=== PATIENT | female | born 1980 | race African-American/Black ===

== ENCOUNTER 2019-03-17 06:28 | Observation (INO) | payer BC ==
--- NOTE | 2019-03-17 09:51 | ER Document Report ---
ED General - General Chief Complaint: Abdominal Pain Stated Complaint: LOWER ABDOMINAL PAIN Time Seen by Provider: 03/17/19 08:00 Primary Care Provider: JOCELIN ARRINGTON MD [Primary Care Provider] - Follow up as needed Mode of Arrival: Ambulatory Information source: Patient Notes: This 38-year-old female presents emergency department this morning with complaints of left lower abdominal pain that started suddenly. She reports she woke up had a bowel movement which was normal and started having left lower abdominal pain. Reports she has never had this pain before. Reports she was unable to stand straight because of the pain. Reports she is walking bent over. Hurts to stand straight. Denies other symptoms such as fever vomiting diarrhea. Reports some nausea but declines antinausea medicine. Denies pain with void. Denies vaginal discharge. Denies chronic abdominal issues such as IBS Crohn's or diverticulitis. Reports she was feeling fine when she went to bed last night. TRAVEL OUTSIDE OF THE [place] IN LAST 30 DAYS: No - HPI Onset: This morning Onset/Duration: Sudden Quality of pain: Sharp Severity: Severe Pain Level: 5 Associated symptoms: Nausea Exacerbated by: Supine, Movement Relieved by: Other - bent over Similar symptoms previously: No Recently seen / treated by doctor: No - Related Data Allergies/Adverse Reactions: No Known Allergies Allergy (Verified 03/17/19 06:31) Past Medical History - General Information source: Patient Last Menstrual Period: march 07 - Social History Smoking Status: Never Smoker Chew tobacco use (# tins/day): No Frequency of alcohol use: Occasional Drug Abuse: None Occupation: base in an office Lives with: Alone Family History: None Patient has suicidal ideation: No Patient has homicidal ideation: No Pulmonary Medical History: Reports: Hx Asthma Renal/ Medical History: Reports: Other - fibroids. Denies: Hx Peritoneal Dialysis Surgical Hx: Negative Review of Systems - Review of Systems Notes: Review HPI for review of systems., All other systems negative Physical Exam - Vital signs Vitals: Temp Pulse Resp BP Pulse Ox 98.9 F 87 20 139/86 H 98 03/17/19 06:33 03/17/19 06:33 03/17/19 06:33 03/17/19 06:33 03/17/19 06:33 - Notes Notes: PHYSICAL EXAMINATION: GENERAL: Well-appearing and in no acute distress HEAD: Atraumatic, normocephalic. EYES: Pupils equal round and reactive to light, extraocular movements intact, sclera anicteric, conjunctiva are normal. ENT: nares patent, oropharynx clear without exudates. Moist mucous membranes. NECK: Normal range of motion, supple without lymphadenopathy LUNGS: CTAB and equal. No wheezes rales or rhonchi. HEART: Regular rate and rhythm without murmurs ABDOMEN: Soft,lower abdominal tenderness. No guarding, no rebound increased pain with supine BACK: Denies pain EXTREMITIES: Normal range of motion, no pitting edema. No cyanosis. NEUROLOGICAL: Cranial nerves grossly intact. Normal sensory/motor exams. PSYCH: Normal mood, normal affect. SKIN: Warm, Dry, normal turgor, no rashes or lesions noted Course - Re-evaluation Re-evalutation: 03/17/19 09:52 This 38-year-old female presents with sudden onset lower abdominal pain that started this morning after she had a bowel movement. Reports she felt fine last night when she went to bed eating drinking as normal. Denies fever vomiting diarrhea reports some nausea this morning. Will evaluate with labs, CT of the abdomen. 03/17/19 11:56 3 cm bladder mass noted on CT scan. Consult Dr. Haynes who advises transvaginal ultrasound for further evaluation of the cyst. Discussed plan of care with patient she is still hurting after 5 mg of morphine. We will treat her pain prior to ultrasound. Agrees with plan at this time. 03/17/19 14:02 Dr. Cruz radiologist on the phone. Reports she noted a left ovarian mass approximately 12 to 13 cm with possible left ovarian torsion. CUFF STITCHER on-call Dr. Seth page through the hospital. She is in the emergency department now in another patient's room and will come see me when she is done. 14:15 Dr. Seth in the emergency department discussed patient with her discussed lab results and radiology results. Patient is being prepared to go the OR. I discussed this with patient. She verbalized understanding and agrees with caleb florence.. Dr Arrington contacted. He reports he is okay with dr seth taking patient to the OR and appreciates her help. 03/17/19 09:45 03/17/19 10:58 MCV 88 fl (80-97) 03/17/19 09:45 MCH 29.4 pg (27.0-33.4) 03/17/19 09:45 MCHC 33.5 g/dL (32.0-36.0) 03/17/19 09:45 RDW 13.2 % (11.5-14.0) 03/17/19 09:45 Seg Neutrophils % 74.2 % (42-78) 03/17/19 09:45 Lymphocytes % 17.3 % (13-45) 03/17/19 09:45 Monocytes % 7.4 % (3-13) 03/17/19 09:45 Eosinophils % 0.3 % (0-6) 03/17/19 09:45 Basophils % 0.8 % (0-2) 03/17/19 09:45 Absolute Neutrophils 4.7 10^3/uL (1.7-8.2) 03/17/19 09:45 Absolute Lymphocytes 1.1 10^3/uL (0.5-4.7) 03/17/19 09:45 Absolute Monocytes 0.5 10^3/uL (0.1-1.4) 03/17/19 09:45 Absolute Eosinophils 0.0 10^3/uL (0.0-0.6) 03/17/19 09:45 Absolute Basophils 0.0 10^3/uL (0.0-0.2) 03/17/19 09:45 Chloride 100 mmol/L (98-107) 03/17/19 10:58 Carbon Dioxide 26 mmol/L (22-30) 03/17/19 10:58 Anion Gap 9 (5-19) 03/17/19 10:58 Est GFR ( Amer) > 60 (>60) 03/17/19 10:58 Est GFR (Non-Af Amer) > 60 (>60) 03/17/19 10:58 Glucose 117 mg/dL (75-110) H 03/17/19 10:58 Calcium 9.5 mg/dL (8.4-10.2) 03/17/19 10:58 Total Bilirubin 0.5 mg/dL (0.2-1.3) 03/17/19 10:58 AST 26 U/L (14-36) 03/17/19 10:58 ALT 19 U/L (9-52) 03/17/19 10:58 Alkaline Phosphatase 59 U/L (38-126) 03/17/19 10:58 Total Protein 7.4 g/dL (6.3-8.2) 03/17/19 10:58 Albumin 4.0 g/dL (3.5-5.0) 03/17/19 10:58 Serum HCG, Qual NEGATIVE (NEGATIVE) 03/17/19 09:45 Urine Color YELLOW 03/17/19 09:45 Urine Appearance SLIGHTLY-CLOUDY 03/17/19 09:45 Urine pH 5.0 (5.0-9.0) 03/17/19 09:45 Ur Specific [place] 1.029 03/17/19 09:45 Urine Protein NEGATIVE mg/dL (NEGATIVE) 03/17/19 09:45 Urine Glucose (UA) NEGATIVE mg/dL (NEGATIVE) 03/17/19 09:45 Urine Ketones NEGATIVE mg/dL (NEGATIVE) 03/17/19 09:45 Urine Blood NEGATIVE (NEGATIVE) 03/17/19 09:45 Urine Nitrite NEGATIVE (NEGATIVE) 03/17/19 09:45 Ur Leukocyte Esterase NEGATIVE (NEGATIVE) 03/17/19 09:45 Urine WBC (Auto) 1 /HPF 03/17/19 09:45 Urine RBC (Auto) 1 /HPF 03/17/19 09:45 Abdomen/Pelvis CT 03/17/19 08:52 IMPRESSION: 1. 3 cm mass in the urinary bladder. 2. 3 cm right adnexal cyst, almost certainly benign. No additional imaging is required for this. Abdomen/Pelvis CT 03/17/19 08:52 IMPRESSION: 1. 3 cm mass in the urinary bladder. 2. 3 cm right adnexal cyst, almost certainly benign. No additional imaging is required for this. Abdomen/Pelvis CT 03/17/19 08:52 IMPRESSION: 1. 3 cm mass in the urinary bladder. 2. 3 cm right adnexal cyst, almost certainly benign. No additional imaging is required for this. Transvaginal US 03/17/19 11:48 IMPRESSION: 13 x 11 x 9 cm cystic mass with mural nodule in the pelvis just slightly to the left of midline. This most likely represents a primary ovarian cystic mass with intermittent left ovarian torsion. Findings discussed with the emergency room practitioner. 03/17/19 14:28 - Vital Signs Vital signs: Temp Pulse Resp BP Pulse Ox 98.9 F 87 20 139/86 H 98 03/17/19 06:33 03/17/19 06:33 03/17/19 06:33 03/17/19 06:33 03/17/19 06:33 - Laboratory Result Diagrams: 03/17/19 09:45 03/17/19 10:58 Laboratory results interpreted by me: 03/17/19 10:58 Sodium 135.4 L Glucose 117 H - Diagnostic Test Radiology reviewed: Image reviewed, Reports reviewed - Consults lupe Reason for consultation: 03/17/19 14:15 torsion, l ovarian mass Consulted provider: will come to ER Discharge - Discharge Clinical Impression: Abdominal pain, torsion, Bladder mass Condition: Stable Disposition: ADMITTED INPATIENT Admitting Provider: [facility] Unit Admitted: Surgical Floor Referrals: JOCELIN ARRINGTON MD [Primary Care Provider] - Follow up as needed
[2019-03-17 09:56] LABS: ABSOLUTE LYMPHOCYTES (AUTO) 1.1 10^3/uL (0.5-4.7); ABSOLUTE MONOCYTES (AUTO) 0.5 10^3/uL (0.1-1.4); ABSOLUTE NEUT (AUTO) 4.7 10^3/uL (1.7-8.2); BASOPHILS % (AUTO) 0.8 % (0-2); EOSINOPHILS % (AUTO) 0.3 % (0-6); HEMATOCRIT 40.2 % (36.0-47.0); HEMOGLOBIN 13.5 g/dL (12.0-15.5); LYMPHOCYTES % (AUTO) 17.3 % (13-45); MEAN CORPUSCULAR HEMOGLOBIN 29.4 pg (27.0-33.4); MEAN CORPUSCULAR HGB CONC 33.5 g/dL (32.0-36.0); MEAN CORPUSCULAR VOLUME 88 fl (80-97); MONOCYTES % (AUTO) 7.4 % (3-13); PLATELET COUNT 345 10^3/uL (150-450); RED BLOOD COUNT 4.58 10^6/uL (3.72-5.28); RED CELL DISTRIBUTION WIDTH 13.2 % (11.5-14.0); SEGMENTED NEUTROPHILS % (AUTO) 74.2 % (42-78); TOTAL CELLS COUNTED % (AUTO) 100 %; WHITE BLOOD COUNT 6.3 10^3/uL (4.0-10.5)
[2019-03-17] MEDS ORDERED: ONDANSETRON HCL INJ/PF 4 MG/2 ML SDV IV ONE ×2 (10:29→11:23)
[2019-03-17] MEDS ORDERED: KETOROLAC TROMETHAMINE INJ/PF 30 MG/1 ML SDV IV ONE (10:29)
[2019-03-17 10:33] LABS: APPEARANCE,URINE SLIGHTLY-CLOUDY; BILIRUBIN,URINE NEGATIVE (NEGATIVE); COLOR,URINE YELLOW; GLUCOSE, URINE NEGATIVE (NEGATIVE); KETONES,URINE NEGATIVE (NEGATIVE); LEUKOCYTE ESTERASE,URINE NEGATIVE (NEGATIVE); NITRITE,URINE NEGATIVE (NEGATIVE); PROTEIN,URINE NEGATIVE (NEGATIVE); URINE SPECIFIC GRAVITY 1.029; UROBILINOGEN,URINE NEGATIVE mg/dL (<2.0)
--- NOTE | 2019-03-17 11:09 | RADIOLOGY REPORT (SQ) ---
EXAM DESCRIPTION: CT ABD/PELVIS WITH IV ONLY COMPLETED DATE/TIME: 03/17/2019 10:43 am REASON FOR STUDY: severe abd pain COMPARISON: None. TECHNIQUE: CT scan of the abdomen and pelvis performed using helical scanning technique with dynamic intravenous contrast injection. No oral contrast. Images reviewed with lung, soft tissue, and bone windows. Reconstructed coronal and sagittal MPR images reviewed. Delayed images for evaluation of the urinary system also acquired. All images stored on PACS. All CT scanners at this facility use dose modulation, iterative reconstruction, and/or weight based d osing when appropriate to reduce radiation dose to as low as reasonably achievable (ALARA). [facility]: Dose Right [facility]: CareDose [facility]: Dose Right [facility]: Teradose 4D [facility]: T3 Search CONTRAST TYPE AND DOSE: contrast/concentration: Isovue 350.00 mg/ml; Total Contrast Delivered: 100.0 ml; Total Saline Delivered: 57.6 ml RENAL FUNCTION: None required. The patient is less than 50 years old. RADIATION DOSE: CT Rad equipment meets quality standard of care and radiation dose reduction techniq ues were employed. CTDIvol: 21.1 mGy. DLP: 2516 mGy-cm.. LIMITATIONS: None. FINDINGS: LOWER CHEST: No significant findings. No nodules or infiltrates. LIVER: Normal size. No masses. No dilated ducts. SPLEEN: Normal size. No focal lesions. PANCREAS: No masses. No significant calcifications. No adjacent inflammation or peripancreatic fluid collections. Pancreatic duct not dilated. GALLBLADDER: No identified stones by CT criteria. No inflammatory changes to suggest cholecystitis. ADRENAL GLANDS: No significant masses or asymmetry. RIGHT KIDNEY AND URETER: No solid masses. No significant calcifications. No hydronephrosis or hyd roureter. LEFT KIDNEY AND URETER: No solid masses. No significant calcifications. No hydronephrosis or hydr oureter. AORTA AND VESSELS: No aneurysm. No dissection. Renal arteries, SMA, celiac without stenosis. RETROPERITONEUM: No retroperitoneal adenopathy, hemorrhage or masses. BOWEL AND PERITONEAL CAVITY: No masses or inflammatory changes. No free fluid or peritoneal masses. APPENDIX: Normal. PELVIS: There appears to be a 3 cm mass in the posterior left side of the urinary bladder. No free f luid in the pelvis. 3 cm right adnexal cyst. ABDOMINAL WALL: No masses. No hernias. BONES: No significant or acute findings. OTHER: No other significant finding. IMPRESSION: 1. 3 cm mass in the urinary bladder. 2. 3 cm right adnexal cyst, almost certainly benign. No additional imaging is required for this. TECHNICAL DOCUMENTATION: JOB ID: [id number] Quality ID # [id number]: Final reports with documentation of one or more dose reduction techniques (e.g., Au tomated exposure control, adjustment of the mA and/or kV according to patient size, use of iterative reconstruction technique) 2010 [employer]- All Rights Reserved Reading location - IP/workstation name: [email or web address]
[2019-03-17] MEDS ORDERED: MORPHINE SULFATE 10 MG/ML INJ IV ONE ×2 (11:22→11:54)
[2019-03-17 11:27] LABS: ALANINE AMINOTRANSFERASE 19 U/L (9-52); ALKALINE PHOSPHATASE 59 U/L (38-126); ANION GAP 9 (5-19); ASPARTATE AMINO TRANSFERASE 26 U/L (14-36); BILIRUBIN,DIRECT 0.2 mg/dL (0.0-0.4); BILIRUBIN,TOTAL 0.5 mg/dL (0.2-1.3); BLOOD UREA NITROGEN 13 mg/dL (7-20); CALCIUM 9.5 mg/dL (8.4-10.2); CARBON DIOXIDE 26 mmol/L (22-30); CHLORIDE 100 mmol/L (98-107); GLUCOSE 117 mg/dL (75-110); POTASSIUM 4.7 mmol/L (3.6-5.0); TOTAL PROTEIN 7.4 g/dL (6.3-8.2)
[2019-03-17] MEDS ORDERED: MORPHINE SULFATE 10 MG/ML INJ ONE (14:03)
--- NOTE | 2019-03-17 14:10 | RADIOLOGY REPORT (SQ) ---
EXAM DESCRIPTION: U/S NON OB PEL TV W/DOPPLER COMPLETED DATE/TIME: 03/17/2019 1:53 pm REASON FOR STUDY: PAIN, eval cyst COMPARISON: CT abdomen pelvis 03/17/2019 TECHNIQUE: Dynamic and static grayscale images acquired of the pelvis via transvaginal approach and recorded on PACS. Additional selected color Doppler and spectral images recorded. Additional transabdominal imaging at the end of the study was performed, including grayscale, cine lo op and color Doppler imaging of the pelvis. LIMITATIONS: Both transabdominal and endovaginal scanning was performed. Exam is limited by body connor bitus and patient cooperation because of pelvic pain. FINDINGS: The prior CT exam from 03/17/2019 1034 hours was reviewed. Arising out of the left adnexum, a 13 cm near water density cystic mass is present with enhancing 3 cm mural nodule. This is best sh own on coronal image 32. This does not represent the urinary bladder as described officially on the CT report. This finding was discussed with Lora welsh in the emergency room. UTERUS: Contour normal. Uterus is 9 x 5 x 6.5 cm in size. There are multiple fibroids in the uterus , the largest is 3 cm. ENDOMETRIAL STRIPE: No focal or generalized thickening. No masses. Endometrial stripe 7 mm in thickn ess. CERVIX: No nabothian cysts. Closed, 2.7 cm in length. RIGHT OVARY AND DOPPLER: The right ovary is not definitely identified. Limited visualization of the right adnexa due to bowel gas. LEFT OVARY AND DOPPLER: In the midline pelvis, a 13 x 11 x 9 cm cystic mass with mural nodule is pres ent. There is no color flow in the cyst wall or in the mural nodule. This is worrisome for a left o vary cystadenoma or other cystic mass with intermittent left ovary torsion. This finding was discuss ed with Lora welsh in the emergency room. FREE FLUID: None noted. OTHER: No other significant finding. IMPRESSION: 13 x 11 x 9 cm cystic mass with mural nodule in the pelvis just slightly to the left of midline. This most likely represents a primary ovarian cystic mass with intermittent left ovarian to rsion. Findings discussed with the emergency room practitioner. COMMENT: Pertinent findings on the imaging study reported as a CRITICAL RESULT to ARUN WELSH NP at14:04 on 03/17/2019. Category of Critical Result: left ovarian torsion TECHNICAL DOCUMENTATION: JOB ID: [id number] [employer]- All Rights Reserved Rev-12/31 Reading location - IP/workstation name: [email or web address]
[2019-03-17] MEDS ORDERED: RINGERS SOLUTION,LACTATED 1,000 ML IV PRN (14:36)
[2019-03-17] MEDS ORDERED: BUPIVACAINE HCL 0.25 % INJ/PF (2.5 MG/1 ML) 30 ML VIAL ONE (15:12)
[2019-03-17] MEDS ORDERED: PROPOFOL INJ 200 MG/20 ML VIAL IV ONE (15:15)
[2019-03-17] MEDS ORDERED: MIDAZOLAM 2 MG/2 ML INJ ONE (15:15)
[2019-03-17] MEDS ORDERED: DEXAMETHASONE SOD PHOSPHATE INJ 4 MG/1 ML VIAL ONE (15:15)
[2019-03-17] MEDS ORDERED: ONDANSETRON HCL INJ/PF 4 MG/2 ML SDV ONE (15:15)
[2019-03-17] MEDS ORDERED: FENTANYL CITRATE INJ/PF 100 MCG/2 ML AMPUL ONE ×3 (15:15→17:55)
[2019-03-17] MEDS ORDERED: KETOROLAC TROMETHAMINE 60 MG/2 ML SDV ONE (15:16)
[2019-03-17] MEDS ORDERED: MORPHINE SULFATE 10 MG/ML INJ IV PRN (16:19)
[2019-03-17] MEDS ORDERED: DIPHENHYDRAMINE HCL 50 MG/ML VIAL IV PRN (16:19)
[2019-03-17] MEDS ORDERED: MEPERIDINE HCL/PF INJ 25 MG/1 ML DISP.SYRIN IV PRN (16:19)
[2019-03-17] MEDS ORDERED: PROMETHAZINE HCL INJ 25 MG/1 ML VIAL IV PRN ×2 (16:19)
[2019-03-17] MEDS ORDERED: OXYCODONE-ACETAMINOPHEN 5-325 MG TABLET PO PRN ×4 (16:19→17:35)
[2019-03-17] MEDS ORDERED: FENTANYL CITRATE INJ/PF 100 MCG/2 ML AMPUL IV PRN ×3 (16:19)
[2019-03-17] MEDS ORDERED: ONDANSETRON HCL INJ/PF 4 MG/2 ML SDV IV PRN (16:19)
[2019-03-17] MEDS ORDERED: BUPIVACAINE HCL 0.25 % INJ/PF (2.5 MG/1 ML) 30 ML VIAL INJ ONE (16:57)
[2019-03-17] MEDS ORDERED: FENTANYL CITRATE INJ/PF 250 MCG/5 ML AMPULE ONE (17:16)
[2019-03-17] MEDS ORDERED: IBUPROFEN 800 MG TABLET PO PRN (17:35)
[2019-03-17] MEDS ORDERED: KETOROLAC TROMETHAMINE INJ/PF 30 MG/1 ML SDV IV PRN (17:35)
[2019-03-17] MEDS: CEFAZOLIN 2 GM/D5W RTU 2 GM/50 ML RTUPB IV SCH (21:25)
--- NOTE | 2019-03-17 22:20 | Brief Operative Note ---
BRIEF OPERATIVE REPORT DATE OF SURGERY: 03/17/19 TIME OF SURGERY: 17:00 PREOPERATIVE DIAGNOSIS: Pelvic Pain, Ovarian Mass, Ovarian torsion POSTOPERATIVE DIAGNOSIS: TU SURGEON: STACIA DUGGAN FINDINGS: Left ovarian mass (greater than 12cm) extending to umbilicus that was leaking straw colored fluid upon entry into abdomen. Left ovarian mass and left fallopian tube torsed times 4. Ovary with approx 3-4cm hard mass near ovary origin and remainder appears to be fluid filled. Pelvic washing obtained. Unfortunately upon untorsing the ovary and fallopian tube (which was triple the normal size with very blunted ends) remained blueish aguilar and required removal. The right fallopian was normal except for small paratubal cyst, right ovary was normal. Abdomen and pelvis irrigated with 3 liters of fluid COMPLICATIONS: none ESTIMATED BLOOD LOSS: 40ml TISSUE REMOVED OR ALTERED: Left ovary and left fallopian tube removed. TECHNICAL PROCEDURE: Operative Laparoscopy, Untorsing of left fallopian tube and ovary, Left Salpingo-ophorectomy
[2019-03-17] MEDS: RINGERS SOLUTION,LACTATED 1,000 ML IV PRN (22:48)
[2019-03-18] MEDS ORDERED: CEFAZOLIN INJ 1 GM VIAL ONE ×2 (00:24→05:25)
[2019-03-18] MEDS: CEFAZOLIN 2 GM/D5W RTU 2 GM/50 ML RTUPB IV SCH ×2 (00:37→05:49)
--- NOTE | 2019-03-18 12:45 | RADIOLOGY REPORT (SQ) ---
EXAM DESCRIPTION: U/S NON-OB PELVIS LTD W/O DOP COMPLETED DATE/TIME: 03/18/2019 10:01 am REASON FOR STUDY: eval bladder mass COMPARISON: None. TECHNIQUE: Pre and post void bladder imaging. LIMITATIONS: None. FINDINGS: A Joseph catheter is present which causes artifact along the posterior base. Otherwise no mucosal mass or other abnormal sonographic findings identified. IMPRESSION: NO SONOGRAPHIC ABNORMALITY IN THE BLADDER. THE PRESENCE OF A JOSEPH CATHETER DOES CAUSE ARTIFACT ALONG THE POSTERIOR BASE OF THE BLADDER AND CANNOT EXCLUDE A MUCOSAL LESION IN THIS AREA. TECHNICAL DOCUMENTATION: JOB ID: [id number] [employer]- All Rights Reserved Reading location - IP/workstation name: [email or web address]
[2019-03-18] MEDS ORDERED: ROCURONIUM BROMIDE INJ 50 MG/5 ML VIAL IV ONE (14:15)
[2019-03-18] MEDS ORDERED: SUCCINYLCHOLINE CHLORIDE INJ 200 MG/10 ML VIAL ONE (14:15)
[2019-03-18] MEDS: RINGERS SOLUTION,LACTATED 1,000 ML IV PRN (14:52)
[2019-03-18] MEDS ORDERED: CEFAZOLIN SODIUM 2 GM in DEXTROSE 5%-WATER 100 ML IV SCH (15:00)
--- NOTE | 2019-03-18 16:19 | PDOC DISCHARGE SUMMARY ---
General - Admit/Disc Date/PCP Admission Date/Primary Care Provider: 03/17/19 14:36 JOCELIN ARRINGTON MD Discharge Date: 03/18/19 - Discharge Diagnosis (1) Ovarian torsion Is this a current diagnosis for this admission?: Yes (2) Abdominal pain Is this a current diagnosis for this admission?: Yes - Additional Information Resuscitation Status: Full Code Discharge Diet: As Tolerated Discharge Activity: Balance Activity w/Rest, Pelvic Rest, Slowly Increase Activity Home Medications: Albuterol Sulfate [Proair Hfa Inhalation Aerosol 8.5 gm Mdi] 1 puff IH QIDP PRN 03/17/19 Montelukast Sodium [Singulair 10 mg Tablet] 10 mg PO DAILY 03/17/19 Norethindrone-E.estradiol-Iron [Junel Fe 1 mg-20 Mcg Tablet] 1 each PO DAILY 03/17/19 History of Present Illness History of Present Illness: LEXIE SANCHEZ is a 38 year old female Hospital Course Hospital Course: patient underwent laparoscopic LSO without difficulty. Had a questionable bladder mass docuented on CT in ER. However, folow up sono today does not show any bladder mass and the mass seen on the [facility] radiology report is felt to be the ovary that was removed. Pt is tolderating rgular diet and has been able to void without difficulty. passing flatus. Physical Exam - Physical Exam Vital Signs: Temp Pulse Resp BP Pulse Ox 98.5 F 84 18 123/65 99 03/18/19 11:50 03/18/19 11:50 03/18/19 11:50 03/18/19 11:50 03/18/19 11:50 Intake & Output 03/17/19 03/18/19 03/19/19 06:59 06:59 06:59 Intake Total 3840 1000 Output Total 1140 Balance 2700 1000 Weight 98.9 kg 138.346 kg General appearance: PRESENT: no acute distress, cooperative GI/Abdominal exam: PRESENT: soft - appropritatly tender to palpation. incisions are clean/dry/intact Result Laboratory Results: 03/17/19 09:45 03/17/19 10:58 Impressions: Abdomen/Pelvis CT 03/17/19 08:52 IMPRESSION: 1. 3 cm mass in the urinary bladder. 2. 3 cm right adnexal cyst, almost certainly benign. No additional imaging is required for this. Transvaginal US 03/17/19 11:48 IMPRESSION: 13 x 11 x 9 cm cystic mass with mural nodule in the pelvis just slightly to the left of midline. This most likely represents a primary ovarian cystic mass with intermittent left ovarian torsion. Findings discussed with the emergency room practitioner. Pelvis Ultrasound 03/18/19 08:00 IMPRESSION: NO SONOGRAPHIC ABNORMALITY IN THE BLADDER. THE PRESENCE OF A JOSEPH CATHETER DOES CAUSE ARTIFACT ALONG THE POSTERIOR BASE OF THE BLADDER AND CANNOT EXCLUDE A MUCOSAL LESION IN THIS AREA. Plan Discharge Plan: discharge home with follow up with Dr. Seth in the office in 2 wks. Time Spent: Less than 30 Minutes Acute Heart Failure - Is this a Heart Failure Patient?: No
[2019-03-18 16:47] VITALS: BP 139/86
== END 2019-03-18 18:17 | disposition home or self-care (01) ==
LOC: ER 06:28 → INTOOBSV 14:36 → EH 14:36 → 2N 19:29
PROVIDERS: ADMIT Student in an Organized Health Care Education/Training Program; ATTEND Student in an Organized Health Care Education/Training Program
PROC: 0UN14ZZ Release Left Ovary, Percutaneous Endoscopic Approach (ICD-10-PCS; 2019-03-17)
PROC: 0UT14ZZ Resection of Left Ovary, Percutaneous Endoscopic Approach (ICD-10-PCS; 2019-03-17)
PROC: 0UT64ZZ Resection of Left Fallopian Tube, Percutaneous Endoscopic Approach (ICD-10-PCS; 2019-03-17)
PROC: 0UN64ZZ Release Left Fallopian Tube, Percutaneous Endoscopic Approach (ICD-10-PCS; principal; 2019-03-17 14:45)
DX: N83.53 Torsion of ovary, ovarian pedicle and fallopian tube (principal); R10.9 Unspecified abdominal pain; D27.1 Benign neoplasm of left ovary; N83.8 Other noninflammatory disorders of ovary, fallopian tube and broad ligament; E66.9 Obesity, unspecified; Z79.899 Other long term (current) drug therapy; Z87.42 Personal history of other diseases of the female genital tract
CPT/HCPCS: 96376; 99285; 96374; 96375; 86900; 86901; 36415; 86850; 86304; 84703; 85025; 80053; 81001; 88162; 88307 ×2; 76830; 76857; 93976; 74177; 00840; 58999; 58661; G0378 ×3; J2250; J0690; J3490; J1100; J1885 ×2; J3010; J2270; J0330; J2405; J7060; J7120 ×2; J2704; 840; 88305